=== PATIENT | female | born 1980 | race Caucasian/White ===

== ENCOUNTER 2020-08-25 13:12 | Outpatient (CLI) | payer BC, SELFPAY ==
[2020-08-25 13:54] LABS: Anion Gap 8 mmol/L (8-16); Blood Urea Nitrogen 15 mg/dL (7-17); Carbon Dioxide 30 mmol/L (22-30); Chloride 102 mmol/L (98-107); Cholesterol 324 mg/dL (0-200); Estimated Glomerular Filt Rate > 60; Glucose 109 mg/dL (65-105); HDL Direct 62 mg/dL; Potassium 3.3 mmol/L (3.4-5.0); Sodium 140 mmol/L (137-145); Triglycerides 311 mg/dL (<150)
[2020-08-25 14:05] LABS: LDL Cholesterol Direct 172 mg/dL
== END 2020-08-25 13:13 | disposition home or self-care (01) ==
PROVIDERS: PCP Family Medicine; Visit Provider Nurse Practitioner Family
DX: Z13.29 Encounter for screening for other suspected endocrine disorder (principal); Z13.220 Encounter for screening for lipoid disorders; Z13.1 Encounter for screening for diabetes mellitus
CPT/HCPCS: 36415; 80048; 80061; 84443

== ENCOUNTER 2021-02-13 10:13 | Outpatient (CLI) | payer BC, SELFPAY ==
--- NOTE | ~2021-02-13 | MM_ITS ---
EXAMINATION: MM screening catia BI w jade HISTORY: Screening mammogram TECHNIQUE: Craniocaudal and mediolateral oblique 3-D tomosynthesis images were obtained and synthetic 2-D images were generated. CAD analysis was submitted and interpreted. COMPARISON: 11/14/2017 BREAST PARENCHYMAL COMPOSITION: There are scattered areas of fibroglandular density. FINDINGS: There is no evidence of suspicious mass, calcification, or architectural distortion to sugg est malignancy in either breast. There has been no suspicious interval change. IMPRESSION: 1. No mammographic evidence of malignancy. 2. Recommend routine screening mammography in one year. BI-RADS Category 1: Negative Reviewed, dictated and finalized at location A. NICAL APPLICATIONS SCIENTIST
== END 2021-02-13 10:14 | disposition home or self-care (01) ==
PROVIDERS: PCP Family Medicine; Visit Provider Nurse Practitioner
DX: Z12.31 Encounter for screening mammogram for malignant neoplasm of breast (principal)
CPT/HCPCS: 77063; 77067

== ENCOUNTER 2021-06-20 09:50 | Outpatient (CLI) | payer BC, SELFPAY ==
[2021-06-20 10:23] LABS: Hematocrit 43.1 % (37.0-47.0); Hemoglobin 13.5 g/dL (12.0-15.0); Mean Corpuscular HGB Conc 31.3 g/dl (32-36); Mean Corpuscular Hemoglobin 30.4 pg (26-34); Mean Corpuscular Volume 97.1 fl (80-100); Mean Platelet Volume 10.9 fl (7.4-10.4); Platelet Count Result 204 k/mm3 (150-375); Red Blood Count 4.44 M/mm3 (4.2-5.4); Red Cell Distribution Width 14.6 % (11.5-14.5); White Blood Count 5.3 K/mm3 (4.5-10.0)
[2021-06-20 10:35] LABS: Cholesterol 255 mg/dL (0-200); Glucose 106 mg/dL (65-110); HDL Direct 70 mg/dL; Potassium 4.1 mmol/L (3.4-5.0); Triglycerides 134 mg/dL (<150)
[2021-06-20 10:47] LABS: LDL Cholesterol Direct 162 mg/dL
[2021-06-20 10:57] LABS: Free T4 Free Thyroxine 0.89 ng/mL (0.78-2.19)
== END 2021-06-20 09:51 | disposition home or self-care (01) ==
PROVIDERS: PCP Family Medicine; Referring Provider Obstetrics & Gynecology Gynecology; Visit Provider Nurse Practitioner Family
DX: E78.5 Hyperlipidemia, unspecified (principal); E87.6 Hypokalemia; R73.09 Other abnormal glucose; N93.8 Other specified abnormal uterine and vaginal bleeding
CPT/HCPCS: 36415; 80061; 82947; 84132; 84439; 84443; 85027

== ENCOUNTER 2022-01-10 09:14 | Outpatient (CLI) | payer BC, SELFPAY ==
[2022-01-10 09:48] LABS: Basophils Percent Auto 0.7 % (0.2-1.2); Eosinophils Absolute Auto 0.1 K/mm3 (0-0.3); Eosinophils Percent Auto 1.1 % (0-4.4); Hematocrit 43.3 % (37.0-47.0); Hemoglobin 13.8 g/dL (12.0-15.0); Immature Granulocyte Absolute 0.02 K/mm3 (0.00-0.031); Immature Granulocyte Percent A 0.4 % (0-0.5); Lymphocytes Absolute Auto 1.23 K/mm3 (0.9-3.2); Mean Corpuscular HGB Conc 31.9 g/dl (32-36); Mean Corpuscular Hemoglobin 30.4 pg (26-34); Mean Corpuscular Volume 95.4 fl (80-100); Monocytes Absolute Auto 0.5 K/mm3 (0.1-0.6); Monocytes Percent Auto 9.4 % (2.6-8.5); Neutrophils Absolute Auto 3.5 K/mm3 (1.3-6.7); Neutrophils Percent Auto 65.4 % (45.5-73.1); Platelet Count Result 211 k/mm3 (150-375); Red Blood Count 4.54 M/mm3 (4.2-5.4); Red Cell Distribution Width 14.4 % (11.5-14.5); White Blood Count 5.3 K/mm3 (4.5-10.0)
== END 2022-01-10 09:15 | disposition home or self-care (01) ==
PROVIDERS: PCP Family Medicine; Visit Provider Obstetrics & Gynecology Gynecology
DX: N92.1 Excessive and frequent menstruation with irregular cycle (principal)
CPT/HCPCS: 36415; 85025

== ENCOUNTER → 2022-02-25 10:25 | Outpatient (CLI) | payer BC, SELFPAY ==
--- NOTE | ~2022-02-25 | US_ITS ---
EXAMINATION: US transvaginal DATE: 02/25/2022 11:14 INDICATION: Menorrhagia. Heavy menstruation. Comparison:No prior studies for comparison. TECHNIQUE: Multiple transabdominal and endovaginal sonographic images of the pelvis performed. FINDINGS: The uterus measures 8.8 x 6.5 x 6.8 cm. The endometrial complex measures 6 mm. There are hy poechoic masses of the uterus measuring 1.4 cm on the right and 2.9 cm posteriorly. The right ovary measures 3.4 x 2.5 x 2.1 cm and the left ovary measures 2.8 x 2.9 x 2.3 cm. There ar e small follicles in each ovary. Normal doppler signal in both ovaries. There is no free fluid in the pelvis. There are no abnormal masses seen on either side. IMPRESSION: 1. Uterine fibroids, largest located posteriorly measuring 2.9 x 2.1 x 2 cm. Reviewed, dictated and finalized at location A. BOOM OPERATOR
== END ==
PROVIDERS: PCP Family Medicine; Visit Provider Nurse Practitioner
DX: N92.1 Excessive and frequent menstruation with irregular cycle (principal); D25.9 Leiomyoma of uterus, unspecified
CPT/HCPCS: 76830

== ENCOUNTER 2022-04-22 00:26 | Day surgery (SDC) | payer BC, SELFPAY ==
[2022-04-15 18:06] VITALS: BMI 28.2
--- NOTE | 2022-04-15 18:28 | PC.NURSE ---
Report to the Outpatient Waiting Room, entrance under the green pavilion located off [facility], at 1015 on 04/22/22. Planned Procedure Time: 1215. Time changes happen often and if your time is changed the preop area will call you the afternoon before. - You and your visitor will be asked to self-screen and do not enter if you have any COVID symptoms. - Only one visitor is requested with a max of two and NO children visitors are allowed at this time. - The patient visitor may be requested to leave or wait in car when not with patient due to distancing restrictions. - A mask is optional within the hospital. Patients may have clear liquids (water, carbonated beverages, clear teas, apple juice) until 3 hours prior to surgery with a maximum of 20 ounces. 0915 - No food from midnight until time of surgery - Infants may have breast milk until 4 hours before surgery, infant formula 6 hours prior to surgery. - Children will be allowed to drink immediately following surgery. If applicable, please bring a bottle or sippy cup to assist with drinking. Juice, water, soda, and popsicles are readily available. For infants on formula, please bring formula the day of surgery. Pacifiers are allowed. Take the following medications with a SIP of water the morning of surgery: None Medications to discontinue per physician: N/A Please no make-up, nail syriac, hairspray, perfume, deodorant, or body powder the day of surgery. No jewelry (including any body piercings) or valuables the day of surgery, leave them at home. Please take a shower or bath the night before, or the morning of, surgery with an antibacterial soap. Wear comfortable, loose fitting clothing. Children are encouraged to wear pajamas. - Jewelry must be removed prior to entering the operating room. Rings and piercings that are not removed may be cut off. - The hospital will not accept responsibility for valuables. - Please leave all valuables, including medications, at home the day of surgery. If you are going home after surgery, a licensed armored car driver must drive you home. - NO public transportation without another adult if you receive anesthesia. - We recommend that an adult stay with you for 24 hours following discharge. - We also recommend that you do not drive, make important decision, drink alcoholic beverages, or take any drugs that were not prescribed by your health care provider for at least 24 hours after your discharge time. For Pediatric surgeries, we recommend two adults accompany the child home. Follow any additional instructions given to you from your surgeon. If you or anyone in your household have experienced Covid symptoms in the past week, please notify your surgeon or the nurse liaison at the phone number below for possible testing. Telephone instructions given to and asked if any additional questions and then verbalized understanding. Patient advised to call surgeon office or pre surgery nurse liaison [phone] if any additional questions.
--- NOTE | 2022-04-22 09:08 | P.PNAN_ITS ---
Anes - Initial Pre Proc Eval Procedure: Operation Date: 04/22/22 12:15 Proposed Procedures p Hysteroscopy Dilation and Curettage, Possible Myomectomy - Shannon Hatch MD Date/Time: 04/22/22 09:08 Surgeon: Shannon Hatch MD Pre Op Diagnosis: menorrhagia, fibroids Patient Data Age: 41 Gender: F Height: 1.68 m Weight: 79.38 kg Allergies Allergy/AdvReac Type Severity Reaction Status Date / Time No Known Allergies Allergy Verified 04/22/22 10:46 Home Medications Medication Instructions Recorded Confirmed Type No Home Medications 04/15/22 04/22/22 History Patient hx anesthesia problems: none Family hx anesthesia problems: none Results Review: All pre-operative results and documents have been reviewed as part of the pre- operative evaluation. 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 Hx of colonic polyps Hyperlipidemia (normal spontaneous vaginal delivery) x1 Surgical History Surgical History (Updated 04/22/22 @ 09:30 by Shannon Hatch MD) History of x3 History of wisdom tooth extraction 1999 Family History Family History Mother Family history of thyroid disease Family history of cardiovascular disease Family history of malignant neoplasm of brain Father Family history of heart disease in male family member before age 55, Onset Age: 39 Diabetes mellitus Family history of mental disorder Social History Social History Years smoked: 15 Smoking status: Former smoker Tobacco type: cigarettes Second hand tobacco smoke exposure: No Smoking end date: 03/31/14 Alcohol intake: current Drinks per week: 5 Substance use: never Substance use type: does not use Living arrangements: with family Spiritual care concerns: No Anes - Eval Final PreProcedure Day of Procedure 04/22/22 09:08 Patient weight: overweight Heart: regular rate and rhythm Lungs: clear to auscultation and normal air movement Airway: Mallampati scale class II Neurological: alert and oriented Last oral intake: >/= 8 hours ASA classification: II Emergent: no Anesthetic plan: proceed Anesthesia type and monitoring: general GIVS and LMA Results Review: All pre-operative results and documents have been reviewed as part of the pre- operative evaluation. Informed Consent: The patient's anesthetic plan and its attendant risks and benefits were discussed with the patient/family/POA. Questions were solicited and answers provided to the satisfaction of the patient/family/POA.
--- NOTE | 2022-04-22 09:26 | WPDHPUPDATE1 ---
History and Physical Update Update Date/Time: 04/22/22 09:26 History and Physical has been reviewed, including an updated exam of the patient. There are NO changes in the patient's condition. Risks, benefits, and alternatives have been discussed and questions answered. Patient agrees to proceed with procedure.
--- NOTE | 2022-04-22 09:26 | PM.HPGS ---
History of Present Illness History of Present Illness Consent: Risks, benefits, and alternatives have been discussed and questions answered. Patient agrees to proceed with procedure. Chief complaint: menorrhagia, fibroids Narrative: Natalie Cohn is a 41 year old female with heavy cycles and prolonged spotting lasting guarding then 10 days. Patient underwent pelvic ultrasound which did reveal several fibroids that appeared to be serosal and intramural. It was recommended to proceed with D&C hysteroscopy for further evaluation. The risks of infection, bleeding, perforation, and possible pathology were reviewed. Patient voices understanding and agrees to proceed. 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 Hx of colonic polyps Hyperlipidemia (normal spontaneous vaginal delivery) x1 Surgical History Surgical History (Updated 04/22/22 @ 09:30 by Shannon Hatch MD) History of x3 History of wisdom tooth extraction 1999 Family History Family History Mother Family history of thyroid disease Family history of cardiovascular disease Family history of malignant neoplasm of brain Father Family history of heart disease in male family member before age 55, Onset Age: 39 Diabetes mellitus Family history of mental disorder Social History Social History Years smoked: 15 Smoking status: Former smoker Tobacco type: cigarettes Second hand tobacco smoke exposure: No Smoking end date: 03/31/14 Alcohol intake: current Drinks per week: 5 Substance use: never Substance use type: does not use Living arrangements: with family Spiritual care concerns: No Meds Home Medications and Allergies Home Medications Medication Instructions Recorded Confirmed Type No Home Medications 04/15/22 04/22/22 History Allergies Allergy/AdvReac Type Severity Reaction Status Date / Time No Known Allergies Allergy Verified 04/22/22 10:46 Exam Const: General: healthy appearing and alert Orientation/consciousness: patient oriented x3 Resp: Effort & Inspection: normal respiratory effort Auscultation: clear to auscultation bilaterally Cardio: Rate: regular rate Rhythm: regular rhythm GI: GI Palp: Yes Soft to palpation, No Tenderness to palpation present (GI) and No Palpable mass present : External Female Exam: normal external appearance and other ( approximately 2cm sebaceous cyst of the left buttock) Speculum Exam - Vagina: normal appearance of the vagina and normal vaginal discharge Speculum Exam - Cervix: normal appearance of the cervix Bimanual exam- vagina & uterus: uterine size normal and consistency normal Bimanual Exam- Adnexa, other: normal adnexae and No adnexal tenderness Neuro: General: patient oriented x3 Assessment and Plan Assessment and plan (1) Menorrhagia: Code(s): N92.0 - Excessive and frequent menstruation with regular cycle Status: Acute Assessment and Plan: plan to proceed with D&C hysteroscopy (2) Sebaceous cyst: Code(s): L72.3 - Sebaceous cyst Status: Acute Assessment and Plan: plan to incise, drain, and excise the cyst wall
[2022-04-22] MEDS: ACETAMINOPHEN 500 MG TABLET 1000 MG PO (10:47)
[2022-04-22 10:54] VITALS: BP 122/88; PULSE 75; RESP 20; TEMP 36.9; O2SAT 100
[2022-04-22] MEDS: LACTATED RINGERS 1,000 ML 30 ML IV CONT (11:00)
[2022-04-22] MEDS: LIDOCAINE HCL 1% PF 30 ML VIAL 10 ML INFILTRATE (12:09)
[2022-04-22] MEDS: BUPIVACAINE/EPINEPHRINE 0.5% 30 ML VIAL 10 ML INFILTRATE (12:09)
[2022-04-22 12:16] VITALS: BP 125/86; PULSE 77; RESP 16; O2SAT 100
--- NOTE | 2022-04-22 12:19 | P.OP_ITS ---
Procedure Note - Detailed Date of Procedure 04/22/22 Pre-op Diagnosis menorrhagia, fibroids, Left buttock sebaceous cyst Post-op Diagnosis Same Procedure Performed D&C hysteroscopy incision and drainage sebaceous cyst Surgeon Shannon Hatch MD Anesthesia MAC and Local Findings the uterus sounds to 11cm and appears grossly; 2cm sebaceous cyst on the left buttock Description of Procedure The patient is taken to the operating room and placed under anesthesia in the dorsal lithotomy position. She was prepped and draped in the usual sterile fashion. [place] speculum was placed in the vagina and the cervix grasped on the anterior lip tenaculum. The cervix is injected in each quadrant with 1% lidocaine. The uterus is sounded to 11cm. The cervix is serially dilated to an 8 Hegar. The diagnostic hysteroscope was placed with no abnormalities noted it is removed. The medium sharp curette is used to curette the endometrium until a good uterine cry was noted in all areas. Vaginal instruments are removed and attention was turned to the sebaceous cyst. The superficial layers of the sister injected with 0.5% Marcaine with epinephrine [id number]. The cyst is incised with a 15 blade scalpel and the contents removed in an intact ball of tissue and discarded. The base of the cyst is grasped with a pickup and excised and discarded. The incision was closed using 3-0 Vicryl on an SH in a horizontal mattress fashion. The patient is awakened from anesthesia and taken to recovery in stable condition. Sponge, needle, and instrument counts are correct per the OR staff. Estimated Blood Loss 5 Drains No Packing No Pathology Yes ( Endometrial curettings) Complications No immediate complications Condition Stable Disposition PACU
[2022-04-22 12:45] VITALS: BP 150/98; PULSE 69; RESP 16; O2SAT 100
[2022-04-22] MEDS: oxyCODONE HCL (*CRX) 5 MG TAB IR PO (12:51)
== END 2022-04-22 13:26 | disposition home or self-care (01) ==
PROVIDERS: PCP Family Medicine; Visit Provider Obstetrics & Gynecology Gynecology
PROC: 0U5B8ZZ Destruction of Endometrium, Via Natural or Artificial Opening Endoscopic (ICD-10-PCS; CPT 58563; principal; 2022-04-22 12:15)
DX: N92.0 Excessive and frequent menstruation with regular cycle (principal); N84.0 Polyp of corpus uteri; L72.3 Sebaceous cyst; Z87.891 Personal history of nicotine dependence
CPT/HCPCS: 58558; 11402; 88305; A9270; J2250; J2704; J3010; J7030; J7120

== ENCOUNTER → 2022-05-16 10:41 | Outpatient (CLI) | payer BC, SELFPAY ==
--- NOTE | ~2022-05-16 | MM_ITS ---
EXAMINATION: MM screening catia BI w jade HISTORY: Screening mammogram TECHNIQUE: Craniocaudal and mediolateral oblique 3-D tomosynthesis images were obtained and synthetic 2-D images were generated. CAD analysis was submitted and interpreted. COMPARISON: 02/13/2021 bilateral screening mammogram 11/14/2017 diagnostic bilateral mammogram BREAST PARENCHYMAL COMPOSITION: There are scattered areas of fibroglandular density. FINDINGS: There is no evidence of suspicious mass, calcification, or architectural distortion to sugg est malignancy in either breast. There has been no suspicious interval change. IMPRESSION: 1. No mammographic evidence of malignancy. 2. Recommend routine screening mammography in one year. BI-RADS Category 1: Negative Reviewed, dictated and finalized at location A. ERY MACHINE SETTER/SET UP OPERATOR
== END ==
PROVIDERS: PCP Family Medicine; Visit Provider Nurse Practitioner
DX: Z12.31 Encounter for screening mammogram for malignant neoplasm of breast (principal)
CPT/HCPCS: 77063; 77067

== ENCOUNTER → 2022-11-04 08:13 | Outpatient (CLI) | payer BC, SELFPAY ==
--- NOTE | ~2022-11-04 | XR_ITS ---
EXAMINATION: XR abdomen/kub 1V DATE: 11/04/2022 09:22 INDICATION: Microscopic hematuria TECHNIQUE: A supine view of the abdomen on 2 radiographs was obtained. COMPARISON: CT dated 09/02/2022 FINDINGS: The largest 2 mm stone previously seen at the mid to lower right kidney appears to be subtly visible at the same location on the prior radiographs. No other evident nephrolithiasis. Multiple phleboliths in the pelvis. Normal bowel gas pattern. IMPRESSION: 1. 2 mm stone at the mid to lower right kidney Reviewed, dictated and finalized at location B.
--- NOTE | ~2022-11-04 | CT_ITS ---
EXAMINATION: CT abdomen pelvis wo/w con DATE: 11/04/2022 09:22 INDICATION: Microscopic hematuria. TECHNIQUE: Computed tomography (CT) of the abdomen and pelvis was performed without and with intraven ous contrast using a total of 130 mL Omnipaque-350 intravenous contrast with a double-bolus technique for simultaneous opacification of the renal parenchyma and renal collecting system. Automated exposu re control and iterative reconstruction technique were employed. The dose-length product was 1626.55 mGy-cm. COMPARISON: CT abdomen and pelvis 09/02/2022 FINDINGS: The visualized portions of the lung bases demonstrate minimal atelectasis. No pleural effusion. The h eart size is normal. There are coronary artery calcifications. No pericardial effusion. The liver, ga llbladder, spleen, pancreas, and adrenal glands are normal. There are cysts in right kidney measuring up to 15 mm. There is a 2 mm stone in right kidney. Left kidney is normal. The right ureter is not w ell opacified in its middle and distal thirds, but is normal. Left ureter is not well opacified in it s middle third, but is normal. There are no dilated loops of bowel. The appendix is normal. There are no dilated loops of bowel. There are no pathologically enlarged lymph nodes. There is no free intrap eritoneal fluid. There is mild thoracic spondylosis. IMPRESSION: 1. 2 mm nonobstructing right kidney stone. Reviewed, dictated and finalized at location A.
[2022-11-04 08:58] LABS: Estimated Glomerular Filt Rate > 60
== END ==
PROVIDERS: PCP Nurse Practitioner Family; Visit Provider Urology
DX: R31.29 Other microscopic hematuria (principal); R10.9 Unspecified abdominal pain; N20.0 Calculus of kidney
CPT/HCPCS: 74018; 74178; Q9967

== ENCOUNTER 2022-11-14 09:21 | Outpatient (CLI) | payer BC, SELFPAY | END 2022-11-14 09:22 | disposition home or self-care (01) | LOC: ANHLAB 09:22 | PROVIDERS: PCP Nurse Practitioner Family; Visit Provider Surgery | DX: Z01.818 Encounter for other preprocedural examination (principal); K43.9 Ventral hernia without obstruction or gangrene | CPT/HCPCS: 36415; 86850; 86900; 86901 ==

== ENCOUNTER 2022-11-19 02:49 | Day surgery (SDC) | payer BC, SELFPAY ==
[2022-11-13 09:44] VITALS: BMI 28.3
--- NOTE | 2022-11-13 09:48 | SUR.PREOP ---
Report to the Outpatient Waiting Room, entrance under the green pavilion located off [facility], at time _1000 on date _11/19/22 . Planned Procedure Time: _1200 . Time changes happen often and if your time is changed the preop area will call you the afternoon before. - You and your visitor will be asked to self-screen and do not enter if you have any COVID symptoms. - A mask is optional within the hospital at this time. Patients may have clear liquids (water, carbonated beverages, clear teas, apple juice) until 3 hours prior to surgery with a maximum of 20 ounces. - No food from midnight until time of surgery - Infants may have breast milk until 4 hours before surgery, infant formula 6 hours prior to surgery. - Children will be allowed to drink immediately following surgery. If applicable, please bring a bottle or sippy cup to assist with drinking. Juice, water, soda, and popsicles are readily available. For infants on formula, please bring formula the day of surgery. Pacifiers are allowed. Take the following medications with a SIP of water the morning of surgery: __n/a DO NOT STOP ANY OF YOUR OTHER PRESCRIPTION MEDICATIONS PRIOR TO SURGERY ?EXCEPT THE FOLLOWING Medications to discontinue per physician __n/a Date to take last dose_n/a Please no make-up, nail korean, hairspray, perfume, deodorant, or body powder the day of surgery. No jewelry (including any body piercings) or valuables the day of surgery, leave them at home. Please take a shower or bath the night before, or the morning of, surgery with an antibacterial soap. Wear comfortable, loose fitting clothing. Children are encouraged to wear pajamas. - Jewelry must be removed prior to entering the operating room. Rings and piercings that are not removed may be cut off. - The hospital will not accept responsibility for valuables. - Please leave all valuables, including medications, at home the day of surgery. HIBICLEROSIO SHOWER AM OF SURGERY If you are going home after surgery, a licensed auto driver must drive you home. - NO public transportation without another adult if you receive anesthesia. - We recommend that an adult stay with you for 24 hours following discharge. - We also recommend that you do not drive, make important decision, drink alcoholic beverages, or take any drugs that were not prescribed by your health care provider for at least 24 hours after your discharge time. For Pediatric surgeries, we recommend two adults accompany the child home. Follow any additional instructions given to you from your surgeon. If you or anyone in your household have experienced Covid symptoms in the past week, please notify your surgeon or the nurse liaison at the phone number below for possible testing. Telephone instructions given to _avmshi chong and asked if any additional questions and then verbalized understanding. Patient advised to call surgeon office or pre surgery nurse liaison [phone] if any additional questions.
[2022-11-19] VITALS (11 sets, daily range): BP systolic 115–150; BP diastolic 63–108; PULSE 54–90; RESP 14–20; TEMP 36.5–36.7; O2SAT 96–100
[2022-11-19] MEDS: KETOROLAC 15 MG/ML VIAL (*BKC) IV PUSH (10:47)
[2022-11-19] MEDS: ACETAMINOPHEN 500 MG TABLET 1000 MG PO (10:47)
--- NOTE | 2022-11-19 11:51 | WPDANESEPPF ---
Anes - Initial Pre Proc Eval Procedure: Operation Date: 11/19/22 12:00 Proposed Procedures p Robotic Assisted Laparoscopic Ventral Hernia Repair with Mesh, Possible Open - Darek Ortiz MD Date/Time: 11/19/22 11:51 Surgeon: Darek Ortiz MD Pre Op Diagnosis: Reducible ventral hernia Patient Data Age: 41 Gender: F Height: 1.68 m Weight: 78.9 kg Last Vital Signs Temp 36.7 C 11/19/22 10:15 Pulse 75 11/19/22 10:15 Resp 18 11/19/22 10:15 BP 141/100 H 11/19/22 10:45 Pulse Ox 100 11/19/22 10:15 O2 Del Method Room Air 11/19/22 10:15 Allergies Allergy/AdvReac Type Severity Reaction Status Date / Time No Known Allergies Allergy Verified 11/19/22 11:08 Home Medications Medication Instructions Recorded Confirmed Type vibegron 75 mg tablet 75 mg PO DAILY 11/13/22 11/19/22 History Patient hx anesthesia problems: none Family hx anesthesia problems: none Results Review: All pre-operative results and documents have been reviewed as part of the pre-operative evaluation. 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 Hx of colonic polyps Hyperlipidemia (normal spontaneous vaginal delivery) x1 Surgical History Surgical History H/O myomectomy History of x3 History of wisdom tooth extraction 1999 Family History Family History Mother Family history of thyroid disease Family history of cardiovascular disease Family history of malignant neoplasm of brain Father Family history of heart disease in male family member before age 55, Onset Age: 39 Diabetes mellitus Family history of mental disorder Acute myocardial infarction Sibling Congenital heart defect Social History Social History Years smoked: 15 Smoking status: Former smoker Tobacco type: cigarettes Second hand tobacco smoke exposure: No Smoking end date: 03/31/18 Additional smoking assessment comments: 15 years smoking 5 cigarettes a day Alcohol intake: current Drinks per week: 5 Substance use: never Substance use type: does not use Lack of Transportation: No Lack of Food: Never True Current Housing: I Have Housing Concerned About Future Housing: No Difficulty Paying Gas/Electric Bills: No Difficulty Paying for Meds: No Currently Unemployed: No Education: Bachelor's Degree Difficulty w/ Childcare or Family Care: No Living arrangements: with family Occupation/Education: occupation Additional occupation/education comments: Wound care nurse. Gender identity (if verbalized by the patient): Female Spiritual care concerns: No Anes - Eval Final PreProcedure Day of Procedure 11/19/22 11:51 Patient weight: overweight Heart: regular rate and rhythm Lungs: clear to auscultation Airway: Mallampati scale class II Neurological: alert and oriented Last oral intake: >/= 8 hours ASA classification: II Emergent: no Anesthetic plan: proceed Anesthesia type and monitoring: general ETT and standard monitoring Results Review: All pre-operative results and documents have been reviewed as part of the pre-operative evaluation. Informed Consent: The patient's anesthetic plan and its attendant risks and benefits were discussed with the patient/family/POA. Questions were solicited and answers provided to the satisfaction of the patient/family/POA.
--- NOTE | 2022-11-19 12:04 | PM.IMHP ---
H&P: HPI History of Present Illness Date/Time: 11/19/22 12:04 Chief Complaint: Ventral hernia Narrative: Ms. Cohn presents at the request of DAYRON Terrell for evaluation.? She reports a approximately 5-year history of intermittent anna-umbilical discomfort.? Recently she's noticed increase in frequency and severity of pain- worse with lifting and activity, and is able to palpate a periumbilical bulge.? Her PCP has ordered her to have a CT scan but as of today this hasn't been scheduled. Review of Systems Review of Systems: The remainder of the review of systems to include constitutional, HEENT, cardiovascular, respiratory, GI, , integumentary, musculoskeletal, endocrine, immunologic, hematologic, psychiatric, and neurologic are all negative except for which is mentioned above in the HPI. 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 Hx of colonic polyps Hyperlipidemia (normal spontaneous vaginal delivery) x1 Surgical History Surgical History H/O myomectomy History of x3 History of wisdom tooth extraction 1999 Family History Family History Mother Family history of thyroid disease Family history of cardiovascular disease Family history of malignant neoplasm of brain Father Family history of heart disease in male family member before age 55, Onset Age: 39 Diabetes mellitus Family history of mental disorder Acute myocardial infarction Sibling Congenital heart defect Social History Social History Years smoked: 15 Smoking status: Former smoker Tobacco type: cigarettes Second hand tobacco smoke exposure: No Smoking end date: 03/31/18 Additional smoking assessment comments: 15 years smoking 5 cigarettes a day Alcohol intake: current Drinks per week: 5 Substance use: never Substance use type: does not use Lack of Transportation: No Lack of Food: Never True Current Housing: I Have Housing Concerned About Future Housing: No Difficulty Paying Gas/Electric Bills: No Difficulty Paying for Meds: No Currently Unemployed: No Education: Bachelor's Degree Difficulty w/ Childcare or Family Care: No Living arrangements: with family Occupation/Education: occupation Additional occupation/education comments: Wound care nurse. Gender identity (if verbalized by the patient): Female Spiritual care concerns: No Meds Home Medications and Allergies Home Medications Medication Instructions Recorded Confirmed Type vibegron 75 mg tablet 75 mg PO DAILY 11/13/22 11/19/22 History Allergies Allergy/AdvReac Type Severity Reaction Status Date / Time No Known Allergies Allergy Verified 11/19/22 11:08 Vital Signs Vital Signs - 24 hr 11/19/22 10:15 11/19/22 10:45 Temperature 36.7 C Pulse Rate 75 Respiratory Rate 18 Blood Pressure 141/108 H 141/100 H Pulse Oximetry 100 Oxygen Delivery Room Air Exam Const: General: comfortable and no acute distress HENMT: Ears: TM's normal bilaterally Face/Nose/Sinus: Normal nares present Mouth: Yes moist mucous membranes Eyes: General: appearance normal, both eyes and all related structures Sclera: sclerae normal Pupils: Equal, round and reactive pupils present EOM: EOMs intact bilaterally Neck: Neck: supple and no JVD Resp: Effort & Inspection: normal respiratory effort Auscultation: clear to auscultation bilaterally Cardio: Rate: regular rate Rhythm: regular rhythm GI: Other: Soft, nondistended, small 1.5 cm periumblical ventral hernia in larger area of epigastric diastasis. Skin: General skin exam: normal color and no rashes or lesions noted Neuro: General: gait normal
--- NOTE | 2022-11-19 12:09 | WPDHPUPDATE1 ---
History and Physical Update Update Date/Time: 11/19/22 12:09 History and Physical has been reviewed, including an updated exam of the patient. There are NO changes in the patient's condition. Risks, benefits, and alternatives have been discussed and questions answered. Patient agrees to proceed with procedure.
[2022-11-19] MEDS: ceFAZolin 2 GM/D5W 50 ML 2 GM/50 ML BAG IVPB (12:56)
[2022-11-19] MEDS: BUPIVACAINE/EPINEPHRINE 0.5% 50 ML VIAL 20 ML INFILTRATE (15:36)
[2022-11-19] MEDS: LACTATED RINGERS 1,000 ML 30 ML IV CONT ×2 (15:59)
[2022-11-19] MEDS: fentaNYL CITRATE INJ (*CRX) 100 MCG/2 ML VIAL 25 MCG IV PUSH ×5 (16:06→16:43)
[2022-11-19] MEDS: ONDANSETRON INJ 4 MG/2 ML VIAL IV PUSH (16:17)
[2022-11-19] MEDS: SCOPOLAMINE 1.5 MG PATCH TRANSDERM (16:33)
[2022-11-19] MEDS: diphenhydrAMINE HCl INJ 50 MG/ML VIAL 25 MG IV PUSH (16:36)
--- NOTE | 2022-11-19 17:13 | W.PM.PROC2 ---
Procedure Note - Detailed Date of Procedure 11/19/22 Pre-op Diagnosis Reducible ventral hernia Post-op Diagnosis Same Procedure Performed Trans abdominal preperitoneal robotic assisted laparoscopic periumbilical reducible ventral hernia repair with Ventralight ST mesh. Surgeon Darek Ortiz MD Telephone Diaphragm Assembler Castro Barrios [employer] MANAGER Anesthesia General Indications Patient is a 41-year-old female who presented with bulging in the periumbilical region. On examination she has a small umbilical hernia with a large area of periumbilical and lower epigastric abdominal diastasis. It is causing her to have symptoms of soreness and so she presents now for elective repair with the robotic assisted laparoscopic approach. Findings The fascial defect itself measured about 1cm in diameter. It was in a larger area of periumbilical diastasis measuring approximately 8cm in length by 4cm in width. There were no abdominal adhesions in the area. Preperitoneal fat was noted within the small fascial defect. Description of Procedure After informed consent was obtained the patient was brought to the operating room where she was placed supine position and then general endotracheal anesthesia was administered. A Arroyo catheter was placed to decompress the bladder. The abdomen was then prepped and draped in usual sterile fashion. A time-out was then performed correctly identifying the patient as well as the procedure to be performed. She was given perioperative IV antibiotics. I then started by gaining access into the abdomen placing a 10mm left upper quadrant compounding assistant trocar port under direct visualization with an Optiview port. Once inside the abdomen insufflated to adequate pneumoperitoneum of 15mmHg of CO2. There were no adhesions to obscure the view of the central portion of the abdomen. I then placed additional robotic trocar ports along the left lateral abdominal wall under direct visualization. Baloonr Nick robot was then brought to the patient's bedside and docked to the patient's right side. The robotic arms were then docked to the robotic ports. Robotic instruments were then advanced into the abdomen under direct visualization. I then scrubbed out the procedure and sat down the robotic console to perform the dissection robotically. I then proceeded to incise the peritoneum on the left side of the patient's abdominal wall. I entered the preperitoneal space very easily and found a good dissection plane where the preperitoneal fat and peritoneum easily came down off of the posterior rectus fascia with a combination of electrocautery hook dissection and blunt dissection. Once I reached the small hernia defect the preperitoneal fat this defect was reduced. I measured the defect was approximately 1cm in diameter. This is in a larger area of abdominal wall diastasis measuring approximately 8cm in length by 4cm in width. Once I felt I had dissected the left at the preperitoneal fat and peritoneum off of the posterior rectus fascia I then proceeded to measure the area of dissection. It seem like a piece of Ventralight mesh measuring 15cm in length by 10cm width with fit in the space very nicely. I then proceeded to do close the small defect and reapproximate the thicker edges of the muscle to plicate the diastasis. This was done with a a running 0 barbed Stratafix suture. This closed defect and close the diastasis easily without any tension. I then proceeded to place the [id number] Ventralight mesh into the abdomen through the compounding assistant port site. A grainy needle was then placed through the abdominal wall and the mesh was pulled up to the undersurface of the abdominal wall utilizing the trans fascial suture in the central portion of the mesh. The mesh was oriented such the long axis of the mesh was parallel to the long axis of the abdomen. This cover the area of hernia defect closure and the bigger area of diastasis very nicely with at least 4 to 5 cm overlap circumferentiall
== END 2022-11-19 18:40 | disposition home or self-care (01) ==
PROVIDERS: PCP Nurse Practitioner Family; Visit Provider Surgery
PROC: (CPT 49591; principal; 2022-11-19 12:00)
DX: K43.9 Ventral hernia without obstruction or gangrene (principal); M62.08 Separation of muscle (nontraumatic), other site; E78.5 Hyperlipidemia, unspecified; Z87.891 Personal history of nicotine dependence
CPT/HCPCS: 49591; S2900; A9270; C1781; C9290; J0690; J1100; J1170; J1200; J1885; J2250; J2405; J2704; J3010; J7120

== ENCOUNTER 2023-03-03 01:09 | Day surgery (SDC) | payer BC, SELFPAY ==
[2023-02-25 08:35] VITALS: BMI 28.2
--- NOTE | 2023-02-25 08:41 | PC.NURSE ---
Report to the Outpatient Waiting Room, entrance under the green pavilion located off [facility], at time 0915 on date 03/03/23. Planned Procedure Time: 1115. Time changes happen often and if your time is changed the preop area will call you the afternoon before. - You and your visitor will be asked to self-screen and do not enter if you have any COVID symptoms. - A mask is optional within the hospital at this time. Patients may have clear liquids (water, carbonated beverages, clear teas, apple juice) until 3 hours prior to surgery with a maximum of 20 ounces. - No food from midnight until time of surgery Take the following medications with a SIP of water the morning of surgery: N/A DO NOT STOP ANY OF YOUR OTHER PRESCRIPTION MEDICATIONS PRIOR TO SURGERY ?EXCEPT THE FOLLOWING Medications to discontinue per physician: N/A Date to take last dose: N/A Please no make-up, nail sinhala, hairspray, perfume, deodorant, or body powder the day of surgery. No jewelry (including any body piercings) or valuables the day of surgery, leave them at home. Please take a shower or bath the night before, or the morning of, surgery with an antibacterial soap. Wear comfortable, loose fitting clothing. - Jewelry must be removed prior to entering the operating room. Rings and piercings that are not removed may be cut off. - The hospital will not accept responsibility for valuables. - Please leave all valuables, including medications, at home the day of surgery. If you are going home after surgery, a licensed pick up driver must drive you home. - NO public transportation without another adult if you receive anesthesia. - We recommend that an adult stay with you for 24 hours following discharge. - We also recommend that you do not drive, make important decision, drink alcoholic beverages, or take any drugs that were not prescribed by your health care provider for at least 24 hours after your discharge time. Follow any additional instructions given to you from your surgeon. If you or anyone in your household have experienced Covid symptoms in the past week, please notify your surgeon or the nurse liaison at the phone number below for possible testing. Telephone instructions given to PT - BRAD BLOCK and asked if any additional questions and then verbalized understanding. Patient advised to call surgeon office or pre surgery nurse liaison [phone] if any additional questions.
--- NOTE | 2023-03-03 07:55 | WPDHPUPDATE1 ---
History and Physical Update Update Date/Time: 03/03/23 07:55 History and Physical has been reviewed, including an updated exam of the patient. There are NO changes in the patient's condition. Risks, benefits, and alternatives have been discussed and questions answered. Patient agrees to proceed with procedure.
--- NOTE | 2023-03-03 07:55 | PM.HPGS ---
History of Present Illness History of Present Illness Consent: Risks, benefits, and alternatives have been discussed and questions answered. Patient agrees to proceed with procedure. Chief complaint: menorrhagia Narrative: Natalie Cohn is a 42 year old female sent with heavy irregular cycles. Patient underwent D&C hysteroscopy in March of 2022 with benign findings and a polyp. Patient was given multiple options at that time and wished to observe. She returned for her annual exam in December and requested to proceed with endometrial ablation. Risks of infection, bleeding,perforation, failure, and success were reviewed. patient voices understanding and agreed to proceed. 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 on 11/19/22 SAW History of hysteroscopy excision of polyp April 22 History of wisdom tooth extraction 1999 Family History Family History Mother Family history of thyroid disease Family history of cardiovascular disease Family history of malignant neoplasm of brain Father Family history of heart disease in male family member before age 55, Onset Age: 39 Diabetes mellitus Family history of mental disorder Acute myocardial infarction Sibling Congenital heart defect Social History Social History Years smoked: 15 Smoking status: Former smoker Tobacco type: cigarettes Second hand tobacco smoke exposure: No Smoking end date: 03/31/16 Additional smoking assessment comments: 15 years smoking 5 cigarettes a day Alcohol intake: current Drinks per week: 5 Substance use: never Substance use type: does not use Lack of Transportation: No Lack of Food: Never True Current Housing: I Have Housing Concerned About Future Housing: No Difficulty Paying Gas/Electric Bills: No Difficulty Paying for Meds: No Currently Unemployed: No Education: Bachelor's Degree Difficulty w/ Childcare or Family Care: No Living arrangements: with family Occupation/Education: occupation Additional occupation/education comments: Wound care nurse. Gender identity (if verbalized by the patient): Female Spiritual care concerns: No Meds Home Medications and Allergies Home Medications Medication Instructions Recorded Confirmed Type No Home Medications 01/03/23 02/25/23 History Allergies Allergy/AdvReac Type Severity Reaction Status Date / Time No Known Allergies Allergy Verified 02/25/23 08:35 Exam Const: General: healthy appearing and alert Orientation/consciousness: patient oriented x3 Resp: Effort & Inspection: normal respiratory effort GI: GI Palp: Yes Soft to palpation, No Tenderness to palpation present (GI) and No Palpable mass present : External Female Exam: normal external appearance Speculum Exam - Vagina: normal appearance of the vagina and normal vaginal discharge Speculum Exam - Cervix: normal appearance of the cervix Bimanual exam- vagina & uterus: uterine size normal and consistency normal Bimanual Exam- Adnexa, other: normal adnexae and No adnexal tenderness Neuro: General: patient oriented x3 Assessment and Plan Assessment and plan (1) Menorrhagia: Code(s): N92.0 - Excessive and frequent menstruat
[2023-03-03 08:05] VITALS: BP 134/92; PULSE 71; RESP 18; TEMP 36.2; O2SAT 100
[2023-03-03] MEDS: LACTATED RINGERS 1,000 ML 30 ML IV CONT (08:33)
[2023-03-03] MEDS: ACETAMINOPHEN 500 MG TABLET 1000 MG PO (08:34)
--- NOTE | 2023-03-03 08:40 | WPDANESEPPF ---
Anes - Initial Pre Proc Eval Procedure: Operation Date: 03/03/23 09:45 Proposed Procedures p Hysteroscopy, Melva Endometrial Ablation - Shannon Hatch MD Date/Time: 03/03/23 08:40 Surgeon: Shannon Hatch MD Pre Op Diagnosis: menorrhagia Patient Data Age: 42 Gender: F Height: 1.68 m Weight: 79.4 kg Allergies Allergy/AdvReac Type Severity Reaction Status Date / Time No Known Allergies Allergy Verified 03/03/23 08:39 Home Medications Medication Instructions Recorded Confirmed Type No Home Medications 01/03/23 03/03/23 History Patient hx anesthesia problems: none Family hx anesthesia problems: none Results Review: All pre-operative results and documents have been reviewed as part of the pre-operative evaluation. 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 on 11/19/22 SAW History of hysteroscopy excision of polyp April 22 History of wisdom tooth extraction 1999 Family History Family History Mother Family history of thyroid disease Family history of cardiovascular disease Family history of malignant neoplasm of brain Father Family history of heart disease in male family member before age 55, Onset Age: 39 Diabetes mellitus Family history of mental disorder Acute myocardial infarction Sibling Congenital heart defect Social History Social History Years smoked: 15 Smoking status: Former smoker Tobacco type: cigarettes Second hand tobacco smoke exposure: No Smoking end date: 03/31/16 Additional smoking assessment comments: 15 years smoking 5 cigarettes a day Alcohol intake: current Drinks per week: 5 Substance use: never Substance use type: does not use Lack of Transportation: No Lack of Food: Never True Current Housing: I Have Housing Concerned About Future Housing: No Difficulty Paying Gas/Electric Bills: No Difficulty Paying for Meds: No Currently Unemployed: No Education: Bachelor's Degree Difficulty w/ Childcare or Family Care: No Living arrangements: with family Occupation/Education: occupation Additional occupation/education comments: Wound care nurse. Gender identity (if verbalized by the patient): Female Spiritual care concerns: No Anes - Eval Final PreProcedure Day of Procedure 03/03/23 08:40 Patient weight: overweight Heart: regular rate and rhythm Lungs: clear to auscultation Airway: Mallampati scale class II Neurological: alert and oriented Last oral intake: >/= 8 hours ASA classification: II Emergent: no Anesthetic plan: proceed Anesthesia type and monitoring: general GIVS and standard monitoring Results Review: All pre-operative results and documents have been reviewed as part of the pre-operative evaluation. Informed Consent: The patient's anesthetic plan and its attendant risks and benefits were discussed with the patient/family/POA. Questions were solicited and answers provided to the satisfaction of the patient/family/POA.
[2023-03-03] MEDS: LIDOCAINE HCL 1% LOCAL INJ 20 ML VIAL 10 ML INFILTRATE (09:32)
[2023-03-03 09:47] VITALS: BP 104/66; PULSE 66; RESP 12; O2SAT 99
--- NOTE | 2023-03-03 09:48 | W.PM.PROC2 ---
Procedure Note - Detailed Date of Procedure 03/03/23 Pre-op Diagnosis menorrhagia Post-op Diagnosis Same Procedure Performed hysteroscopy with failed Melva endometrial ablation Surgeon Shannon Hatch MD Anesthesia MAC and Local Findings the uterus sounds to 11cm; the path through the cervix is irregular; the endometrium appears grossly Description of Procedure The patient is taken to the operating room and placed under anesthesia in the dorsal lithotomy position. She was prepped and draped in the usual sterile fashion. [place] speculum was placed in the vagina and the cervix grasped on the anterior lip with a tenaculum. The cervix is serially injected in each quadrant with 1% lidocaine. The uterus is sounded to 11cm. The diagnostic hysteroscope was placed and the path through the cervix is very convoluted with more than 1 sharp angle. The lower uterine segment is narrow. The cervix is serially dilated with Hegar to an 8. The Melva device is opened and placed and with difficulty. The indicator remained in the red on the handpiece. The device is manipulated to the left, right, up, and down and finally was in the lower end of the green on the indicator. The balloon was then inflated with 6cc of air. The cavity assessment failed on the 1st attempt. Due to the convoluted path to the endometrium, the device was removed and the hysteroscope replaced. The hysteroscope revealed as I suspected a perforation in the anterior fundus. The instruments were removed. The sponge, needle, and instrument counts are correct per the OR staff. The patient was awakened from anesthesia and taken to recovery in stable condition. Due to the anatomy, I do not feel a 2nd attempt at an ablation would be successful. Estimated Blood Loss 5 Drains No Packing No Pathology None sent Complications Other complications ( Uterine perforation) Condition Stable Disposition PACU
[2023-03-03 10:15] VITALS: BP 120/80; PULSE 64
[2023-03-03] MEDS: KETOROLAC 30 MG/ML VIAL (*BKC) IV PUSH (10:35)
[2023-03-03 10:45] VITALS: BP 134/85; PULSE 68
== END 2023-03-03 10:57 | disposition home or self-care (01) ==
PROVIDERS: PCP Nurse Practitioner Family; Visit Provider Obstetrics & Gynecology Gynecology
PROC: 0U5B8ZZ Destruction of Endometrium, Via Natural or Artificial Opening Endoscopic (ICD-10-PCS; CPT 58563; principal; 2023-03-03 09:45)
DX: N92.0 Excessive and frequent menstruation with regular cycle (principal); I10 Essential (primary) hypertension; E78.5 Hyperlipidemia, unspecified; Z87.891 Personal history of nicotine dependence; Z86.010 Personal history of colon polyps; Z82.49 Family history of ischemic heart disease and other diseases of the circulatory system; Z80.8 Family history of malignant neoplasm of other organs or systems
CPT/HCPCS: 58563; A9270; J1100; J1885; J2250; J2405; J2704; J3010; J7120

== ENCOUNTER → 2023-05-20 11:29 | Outpatient (CLI) | payer BC, SELFPAY ==
--- NOTE | ~2023-05-20 | MM_ITS ---
EXAMINATION: MM screening [facility] BI w jade HISTORY: Screening TECHNIQUE: Craniocaudal and mediolateral oblique 3-D tomosynthesis images were obtained and synthetic 2-D images were generated. CAD analysis was submitted and interpreted. COMPARISON: Comparison to multiple prior studies sequentially, with oldest reviewed study dated 11/14. BREAST PARENCHYMAL COMPOSITION: Not dense: There are scattered areas of fibroglandular density. FINDINGS: There is no evidence of suspicious mass, calcification, or architectural distortion to sugg est malignancy in either breast. There has been no suspicious interval change. IMPRESSION: 1. No mammographic evidence of malignancy. 2. Recommend routine screening mammography in one year. BI-RADS Category 1: Negative Reviewed, dictated and finalized at location A. TICAL SCIENCE INSTRUCTOR
== END ==
PROVIDERS: PCP Family Medicine; Visit Provider Nurse Practitioner
DX: Z12.31 Encounter for screening mammogram for malignant neoplasm of breast (principal)
CPT/HCPCS: 77063; 77067

== ENCOUNTER 2023-12-15 07:56 | Outpatient (CLI) | payer BC, SELFPAY ==
--- NOTE | ~2023-12-15 | US_ITS ---
EXAMINATION: US soft tissue LE RT DATE: 12/15/2023 08:19 INDICATION: Right lower limb mass, lump and swelling. TECHNIQUE: Multiple grayscale and Doppler ultrasound images of the region of concern at the anterior right thigh were obtained. COMPARISON: None FINDINGS/IMPRESSION: At the region of concern is a 1.2 x 0.7 x 1.3 cm ovoid region of the superficial subcutaneous fat wit h slightly increased echogenicity which could be due to either inflammation or a lipoma. Reviewed, dictated and finalized at location B.
== END 2023-12-15 07:57 | disposition home or self-care (01) ==
LOC: MICIMG 07:57
PROVIDERS: PCP Family Medicine; Visit Provider Nurse Practitioner Adult Health
DX: R22.41 Localized swelling, mass and lump, right lower limb (principal)
CPT/HCPCS: 76882

== ENCOUNTER 2024-06-07 15:08 | Outpatient (CLI) | payer BC, SELFPAY ==
[2024-06-07 15:40] LABS: Hematocrit 37.6 % (37.0-47.0); Hemoglobin 11.2 g/dL (12.0-15.0); Mean Corpuscular HGB Conc 29.8 g/dl (32-36); Mean Corpuscular Hemoglobin 24.1 pg (26-34); Mean Corpuscular Volume 80.9 fl (80-100); Mean Platelet Volume 9.8 fl (7.4-10.4); Platelet Count Result 335 k/mm3 (150-375); Red Blood Count 4.65 M/mm3 (4.2-5.4); Red Cell Distribution Width 17.2 % (11.5-14.5); White Blood Count 6.1 K/mm3 (4.5-10.0)
[2024-06-07 16:23] LABS: Free T4 Free Thyroxine 0.87 ng/dL (0.78-2.19)
--- OUTSIDE RECORDS SUMMARY | 2024-06-07 17:43 | XMS_ITS | Continuity of Care Document ---
Author Organization [facility] Address [address] [place] [address] Phone Care Team Providers [employer] Name Role Phone Nohemi Wayne Unavailable Unavai labpadmaja Medications Medication Instructions Dosage Effective Dates (start - stop) Status Comments CORTISPORIN-TC 3.3-3-12/29 DROP 3 QID - Active Advance Directives Directive Yes / No Effective Date File Name No Information Encounters Encounter Description Practice Location Reason(s) For Visit Diagnoses Date Provider Providers Copied on Encounter [facility], [address], [place], [place], [id number], tel:[phone] [facility] No Information Sep-0 6-201 1 Mirza Song. [address] [facility], [address] [place] [address], [id number] , [place]. tel: [phone] [facility], [address], [place], [place], [id number], tel:[phone] [facility] ACUTE PHARYNGITIS July-0 7-200 9 Mariusz Oswald. [address] , [address], [place], [place], [id number] , [place]. tel: [phone] [facility], [address], [place], [place], [id number], tel:[phone] [facility] ACUTE NASOPHARYNGITIS May-0 7-200 9 Mirza Song. [address] [facility], [address] [facility], [place], [place], [id number] , . tel: [phone] [facility], [address], [place], [place], [id number], [place] tel:[phone] [facility] IMPAIRED FASTING GLUCOSE 8 Mariusz Oswald. [address], [address], [place], [place], [id number] , [place]. tel: [phone] [facility], [address], [place], [place], [id number], tel:[phone] [facility] SCREEN-DEFIC ANEMIA NECROUTINE MEDICAL EXAMSCREEN-DIABE TRISTEN MELLITUSSCREEN-T HYROID DISORDERSCREEN LIPOID DISORDERS 8 Mariusz Oswald. [address], [address], [place], [place], [id number] , [place]. tel: [phone] Family History Family Member Type Diagnosis Age At Onset No Information Payers Payer name Insurance type Covered libertarian ID Authoriza tion(s) No Information Social History Type Description Quantity Date Captured Comments Sex Female Smoking Status No Information Chief Complaint And Reason For Visit No Information Reason For Referral Reason For Referral No Information History Of Present Illness Encounter Date Complaint History Of Prese nt Illness No Information Functional Status Date Functional Assessmen t No Information Instructions Date Instruction Additional Infor mation No Information Assessments Type Assessment Date No Information Patient Care Teams Name Effective Dates (start - stop) Status Members No Information
--- OUTSIDE RECORDS SUMMARY | 2024-06-07 17:44 | XMS_ITS | Continuity of Care Document ---
Author Organization [facility] Address [address] [place] [address] Phone Care Team Providers Care Vacuum Repairer Name Role Phone Unavailable Unavailable Unavailable Advance Directives Directive Yes / No Effective Date File Name No Information Encounters Encounter Description Practice Location Reason(s) For Visit Diagnoses Date Provider Providers Copied on Encounter [facility], [address] [facility], [place], [place], [id number], tel:[phone] [facility] No Information No Information Referring Provider: STARLA ARCEO S, [address] [facility] [id number], [place], [address]. tel:[phone] Family History Family Member Type Diagnosis Age At Onset No Information Payers Payer name Insurance type Covered constitution party ID Authorjon srivastava(s) [facility] PPO [id number] Social History Type Description Quantity Date Captured Comments Sex Female Smoking Status No Information Chief Complaint And Reason For Visit No Information History Of Present Illness Encounter Date Complaint History Of Prese nt Illness No Information Instructions Date Instruction Additional Infor mation No Information Assessments Type Assessment Date No Information
[2024-06-09 02:28] LABS: Prolactin 4.5 ng/mL
== END 2024-06-07 15:09 | disposition home or self-care (01) ==
LOC: ANHLAB 15:09
PROVIDERS: PCP Family Medicine; Visit Provider Nurse Practitioner Family
DX: N92.0 Excessive and frequent menstruation with regular cycle (principal)
CPT/HCPCS: 36415; 84146; 84439; 84443; 85027

== ENCOUNTER 2024-07-13 09:20 | Outpatient (CLI) | payer BC, SELFPAY ==
--- NOTE | ~2024-07-13 | US_ITS ---
Pelvic ultrasound. Clinical History: Menorrhagia Technique: Realtime transabdominal and transvaginal scanning of the pelvis was performed. Color flow Doppler and Doppler spectral analysis were performed. Findings: The uterus is anteverted, and measures 10.7 x 6.7 x 7.5 cm. The endometrial stripe has a t hickness of 13 mm. Intramural, possibly partial submucosal fibroid measures 3.7 x 3.2 x 3.0 cm.. The right ovary measures 1.7 x 2.5 x 1.7 cm. No significant right ovarian or adnexal mass is seen. The left ovary measures 3.0 x 1.5 x 2.3 cm. No significant left ovarian or adnexal mass is seen. There is no evidence of free fluid in the cul de sac. Impression: 3.7 cm uterine fibroid, as detailed above. Reviewed, dictated and finalized at [facility]. Impression: 3.7 cm uterine fibroid, as detailed above.
== END 2024-07-13 09:21 | disposition home or self-care (01) ==
LOC: MICIMG 09:21
PROVIDERS: PCP Family Medicine; Visit Provider Nurse Practitioner Family
DX: D25.0 Submucous leiomyoma of uterus (principal); N92.0 Excessive and frequent menstruation with regular cycle
CPT/HCPCS: 76830; 76856

== ENCOUNTER 2025-02-01 16:13 | Outpatient (CLI) | payer BC, SELFPAY ==
[2025-02-01 16:46] LABS: Hematocrit 30.5 % (37.0-47.0); Hemoglobin 8.7 g/dL (12.0-15.0); Mean Corpuscular HGB Conc 28.5 g/dl (32-36); Mean Corpuscular Hemoglobin 20.0 pg (26-34); Mean Corpuscular Volume 70.3 fl (80-100); Platelet Count Result 305 k/mm3 (150-375); Red Blood Count 4.34 M/mm3 (4.2-5.4); White Blood Count 5.9 K/mm3 (4.5-10.0)
[2025-02-01 17:39] LABS: Iron 20 ug/dL (37-170)
[2025-02-01 18:16] LABS: Ferritin 4.08 ng/mL (6.24-137)
== END 2025-02-01 16:14 | disposition home or self-care (01) ==
LOC: ANHLAB 16:14
PROVIDERS: Visit Provider Obstetrics & Gynecology
DX: N92.0 Excessive and frequent menstruation with regular cycle (principal)
CPT/HCPCS: 36415; 82728; 83540; 85027

== ENCOUNTER 2025-02-14 09:22 | Outpatient (CLI) | payer BC, SELFPAY | END 2025-02-14 09:23 | disposition home or self-care (01) | LOC: ANHSURGERY 09:26 | PROVIDERS: PCP Family Medicine; Visit Provider Obstetrics & Gynecology | DX: Z01.818 Encounter for other preprocedural examination (principal); D25.9 Leiomyoma of uterus, unspecified; D50.9 Iron deficiency anemia, unspecified | CPT/HCPCS: 36415; 86850; 86900; 86901 ==

== ENCOUNTER 2025-02-15 10:14 | Outpatient (CLI) | payer BC, SELFPAY ==
[2025-02-15 11:20] LABS: Hematocrit 32.2 % (37.0-47.0); Hemoglobin 9.2 g/dL (12.0-15.0); Immature Granulocyte Percent A 0.4 % (0-0.5); Lymphocytes Absolute Auto 1.19 K/mm3 (0.9-3.2); Mean Corpuscular HGB Conc 28.6 g/dl (32-36); Mean Corpuscular Hemoglobin 19.9 pg (26-34); Mean Corpuscular Volume 69.5 fl (80-100); Nucleated Red Blood Cells Absolute Auto 0.000 K/mm3 (0.0-0.012); Nucleated Red Blood Cells Perc 0.0 % (0.0-0.2); Platelet Count Result 363 k/mm3 (150-375); Red Blood Count 4.63 M/mm3 (4.2-5.4); White Blood Count 4.6 K/mm3 (4.5-10.0)
[2025-02-15 11:48] LABS: Hypochromasia 1+; Polychromasia Occasional
[2025-02-15 11:49] LABS: Anisocytosis 1+; Ovalocytes 1+; Schistocytes None Seen; Stomatocytes Occasional
== END 2025-02-15 10:15 | disposition home or self-care (01) ==
LOC: ANHLAB 10:15
PROVIDERS: PCP Family Medicine; Visit Provider Obstetrics & Gynecology
DX: D64.9 Anemia, unspecified (principal)
CPT/HCPCS: 36415; 85025

== ENCOUNTER 2025-02-16 01:16 | Day surgery (SDC) | payer BC, SELFPAY ==
[2025-02-08 09:14] VITALS: BMI 31.8
--- NOTE | 2025-02-08 09:28 | PC.NURSE ---
[facility] has started construction of its new state of the art ER which will open Spring 2026. With this, we anticipate parking may be a challenge for some our surgical patients and families. Parking spaces are limited but are available for all Surgical, obstetrics, and ER patients sharing this lot. If you arrive and find you are having a hard time finding a parking space, please note that we understand the challenges, please drive around the hospital and park near Hospital Entrance 1. When you enter this entrance, you can ask a volunteer to direct or take you back to the surgical waiting area to check in. We appreciate everyone?s understanding of these expected challenges while we build for your future. Report to the Outpatient Waiting Room, entrance under the green pavilion located off [address], at time _0600_ on date _[id number]_. Planned Procedure Time: _0730_.? Time changes happen often and if your time is changed the preop area will call you the afternoon before. - You and your visitor will be asked to self-screen and do not enter if you have any COVID symptoms. Please call surgeon if you need to reschedule. - A mask is optional within the hospital at this time. Patients may have clear liquids (water, carbonated beverages, clear teas, apple juice) until 3 hours prior to surgery with a maximum of 20 ounces. - No food from midnight until time of surgery and no smoking, or chewing tobacco (or any form of nicotine). No chewing gum, candy or mints. Take only the following medications with a SIP of water on the morning of surgery: ___None____ DO NOT STOP ANY OF YOUR OTHER PRESCRIPTION MEDICATIONS PRIOR TO SURGERY EXCEPT THE FOLLOWING Hold all vitamins and supplements for 3 days per anesthesiologist. Medications to discontinue per physician Patient says Dr Flowers told her no Ibuprofen for a week prior to surgery. Date to take last dose Please no make-up, nail frisian, hairspray, perfume, deodorant, or body powder the day of surgery.? No jewelry (including any body piercings) or valuables the day of surgery, leave them at home.? Please take a shower or bath the night before, or the morning of, surgery with an antibacterial soap.? Wear comfortable, loose fitting clothing.? - Jewelry must be removed prior to entering the operating room.? Rings and piercings that are not removed may be cut off. - The hospital will not accept responsibility for valuables.? - Please leave all valuables, including medications, at home the day of surgery. If you are going home after surgery, a licensed patrol driver must drive you home.? - NO public transportation without another adult if you receive anesthesia. - We recommend that an adult stay with you for 24 hours following discharge. - We also recommend that you do not drive, make important decision, drink alcoholic beverages, or take any drugs that were not prescribed by your health care provider for at least 24 hours after your discharge time. Follow any additional instructions given to you from your surgeon. Telephone instructions given to _Natalie__and asked if any additional questions and then verbalized understanding. Patient advised to call surgeon office or pre surgery nurse liaison [phone] if any additional questions.
[2025-02-16] VITALS (13 sets, daily range): BP systolic 120–141; BP diastolic 69–98; PULSE 50–75; RESP 11–18; TEMP 36.2–36.9; O2SAT 99–100; BMI 31.1
[2025-02-16] MEDS: LACTATED RINGERS 1,000 ML 30 ML IV CONT ×2 (06:30→10:24)
[2025-02-16] MEDS: KETOROLAC 15 MG/ML VIAL (*BKC) IV PUSH (06:35)
[2025-02-16] MEDS: ACETAMINOPHEN 500 MG TABLET 1000 MG PO ×4 (06:35→23:50)
--- NOTE | 2025-02-16 07:03 | WPDHPUPDATE1 ---
History and Physical Update Update Date/Time: 02/16/25 07:03 History and Physical has been reviewed, including an updated exam of the patient. There are NO changes in the patient's condition. Risks, benefits, and alternatives have been discussed and questions answered. Patient agrees to proceed with procedure.
--- NOTE | 2025-02-16 07:06 | WPDANESEPPF ---
Anes - Initial Pre Proc Eval Procedure: Operation Date: 02/16/25 07:30 Proposed Procedures p Robotic Assisted Laparoscopic Total Vaginal Hysterectomy with Bilateral Salpingectomy - Vitor Flowers MD Date/Time: 02/16/25 07:06 Surgeon: Vitor Flowers MD Pre Op Diagnosis: menorrhagia, fibroids Patient Data Age: 44 Gender: F Height: 1.68 m Weight: 87.6 kg Allergies Allergy/AdvReac Type Severity Reaction Status Date / Time iron AdvReac Mild Diarrhea Verified 02/16/25 06:21 Home Medications ?Medication ?Instructions ?Recorded ?Confirmed ?Type multivitamin 1 tablet PO DAILY 06/07/24 02/16/25 History ibuprofen 200 mg capsule 200 mg PO ONCE PRN pain 02/16/25 02/16/25 History Patient hx anesthesia problems: post op nausea/vomiting Family hx anesthesia problems: none Results Review: All pre-operative results and documents have been reviewed as part of the pre-operative evaluation. 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 on 11/19/22 SAW History of x3 History of wisdom tooth extraction 1999 Family History Family History Mother Family history of thyroid disease Family history of cardiovascular disease Family history of malignant neoplasm of brain Father Family history of heart disease in male family member before age 55, Onset Age: 39 Diabetes mellitus Family history of mental disorder Acute myocardial infarction Sibling Congenital heart defect Social History Social History Years smoked: 15 Smoking status: Former smoker Tobacco type: cigarettes Second hand tobacco smoke exposure: No Smoking end date: 03/31/16 Additional smoking assessment comments: 15 years smoking 5 cigarettes a day Alcohol intake: current Drinks per week: 5 Substance use: never Substance use type: does not use Do You Feel Safe in your Home?: Yes Lack of Transportation: No Lack of Food: Never True Current Housing: I Have Housing Concerned About Future Housing: No Difficulty Paying Gas/Electric Bills: No Difficulty Paying for Meds: No Currently Unemployed: No Education: Bachelor's Degree Difficulty w/ Childcare or Family Care: No Living arrangements: with family Occupation/Education: occupation Additional occupation/education comments: Wound care nurse. Gender identity (if verbalized by the patient): Female Spiritual care concerns: No Anes - Eval Final PreProcedure Day of Procedure 02/16/25 07:06 Patient weight: obese Lungs: normal air movement Airway: Mallampati scale class II Neurological: alert and oriented Last oral intake: >/= 8 hours ASA classification: II Emergent: no Anesthetic plan: proceed Anesthesia type and monitoring: general ETT and standard monitoring Results Review: All pre-operative results and documents have been reviewed as part of the pre-operative evaluation. HTN, BMI 31, stress test approx 10 years ago neg for ischemia per pt. Informed Consent: The patient's anesthetic plan and its attendant risks and benefits were discussed with the patient/family/POA. Questions were solicited and answers provided to the satisfaction of the patient/family/POA.
[2025-02-16] MEDS: SCOPOLAMINE 1 MG PATCH 1 PATCH TRANSDERM (07:20)
[2025-02-16] MEDS: ceFAZolin 2 GM in SODIUM CHLORIDE 0.9% IV 50 ML 100 ML IVPB (07:29)
[2025-02-16] MEDS: metroNIDAZOLE 500 MG/ISO 100ML 500 MG/100 ML BAG 100 MG IVPB (07:39)
[2025-02-16] MEDS: BUPivacaine HCL 0.5% 10 ML AMP 30 ML INFILTRATE (08:27)
--- NOTE | 2025-02-16 09:26 | S_PTH ---
PATIENT: Natalie Cohn LOC: [facility] U#:[id number] AGE/SX: 44/F ROOM: RE02/16/[address]: Vitor Flowers MD : 1980 BED: DIS: 02/17/2025 SPEC #: [id number] RECD: 02/16/25 11:19 STATUS: MITRA REQ #: [id number] TEENA: 02/16/25 09:[address]: Vitor Flowers DEPT: [facility] Surgical RECD BY: Drew Inman ENTERED: 02/16/25 11:19 SP TYPE: Surgical OTHR DR: Reji Navarro MD Tissues: A - Uterus Procedures: Hematoxylin and Eosin Stain Gross and Microscopic Level 5
--- NOTE | 2025-02-16 10:34 | P.OP_ITS ---
Procedure Note - Detailed Date of Procedure 02/16/25 Pre-op Diagnosis menorrhagia, fibroids Post-op Diagnosis Same Procedure Performed Laparoscopic robotic assisted total vaginal hysterectomy with bilateral salpingectomy. Surgeon Vitor Flowers MD Anesthesia General Indications Menorrhagia and fibroids , h/o anemia. Findings Enlarged uterus, intramural and subserosal. Normal appearing ovaries and fallopian tubes. Uterus 168 gms. Description of Procedure After informed consent was obtained she was taken to the operating room and general endotracheal anesthesia was administered. She was placed in low li thotomy position. An exam under anesthesia was performed. Uterus mildly enlarged retroverted, no adnexal masses palpated. She was and prepped and draped in sterile fashion. Arroyo catheter placed in bladder. Attention was turned to the vagina speculum was inserted. Single-tooth tenaculum placed on anterior lip of the cervix the uterus sounded to 9 cm. The cervix was dilated to a 8 Woodard dilator. A size 8 uterine manipulator was inserted and secured. A size 3.0 colp cup was secured in the vagina. Then attention was turned to the abdomen, marcaine injected subcutaneously. An incision was made horizontal 2 cm above the umbilicus. The subcutaneous tissue was dissected with S retractors. Anterior and posterior fascia grasped with Cindy clamp and incised. Peritoneum entered. No adhesions palpated. The fascia sutures were secured with 0 vicryl. The robotic hysson port and camera inserted into abdomen and secured to fascial sutures. A Pneumoperitoneum of 15 mm per mercury was obtained. No abdominal or pelvic adhesions noted. Additional 8mm robotic ports were inserted under laparoscopic visualization. Attention was turned to surgery console. The right round ligament was ligated. The right side of the bladder was dissected from the lower uterine segment and upper cervix. The fallopian tube was ligated from broad ligament. The right ovarian ligament was ligated. The posterior leaf of the broad ligament was further dissected. The ascending uterine vessels on the right were cauterized. The uterine vessels were ligated. Attention was turned to the left round ligament which was ligated and the anterior leaf of the broad ligament was dissected anteriorly. The rest of the vesicouterine peritoneum was dissected off of the uterus. Once the bladder was dissected below the colp cup then the posterior leaf of the broad ligament was further dissected. The ovarian ligament was ligated. The ascending uterine vessels were ligated. The uterine arteries were ligated. The cardinal ligaments were ligated. This was done on both sides. An incision was made anterior colpotomy. The uterus was bivalved with cautery. The colposcopy incision was completed and the cervix was removed from the vagina. The uterus and cervix were removed through the vagina. The vaginal cuff was closed in a running fashion with 0 V lock suture. Hemostasis was noted. The pelvis was irrigated. Hemostasis noted. Hemoderm was applied in the pelvis. The patient was taken out of Trendelenburg position. The pneumoperitoneum was released and the ports were removed. The fascial stitch at the supraumbilical incision was approximated with O vicryl. The skin incisions were closed with 4 O Vicryl and skin glue. The patient was extubated in operating room. The sponge count was correct x2. Patient tolerated procedure well and was taken to recovery in stable condition. Estimated Blood Loss 30 Drains No Packing No Pathology Yes (uterus and cervix and right and left fallopian tubes) Complications No immediate complications Condition Stable Disposition PACU [facility] Billing Surgery - Charge Forward: Surgery Billing
[2025-02-16] MEDS: fentaNYL CITRATE INJ (*CRX) 100 MCG/2 ML VIAL 25 MCG IV PUSH ×2 (11:09→11:11)
[2025-02-16] MEDS: SIMETHICONE 80 MG TAB.CHEW PO ×2 (12:34→18:00)
[2025-02-16] MEDS: KETOROLAC 30 MG/ML VIAL (*BKC) IV PUSH ×3 (12:34→23:50)
[2025-02-16 12:38] LABS: BEDSIDEPREGUCG Negative (Negative)
[2025-02-16] MEDS: DOCUSATE SODIUM 100 MG CAPSULE PO (17:59)
[2025-02-16] MEDS: oxyCODONE HCL (*CRX) 5 MG TAB IR PO (22:18)
[2025-02-17 04:00] VITALS: BP 115/73; PULSE 73; RESP 16; TEMP 36.8; O2SAT 100
[2025-02-17] MEDS: IBUPROFEN 600 MG TABLET PO (05:30)
[2025-02-17] MEDS: ACETAMINOPHEN 500 MG TABLET 1000 MG PO (05:30)
[2025-02-17] MEDS: oxyCODONE HCL (*CRX) 5 MG TAB IR PO (06:41)
--- NOTE | 2025-02-17 07:18 | P.PNOB_ITS ---
GAS APPLIANCE INSTALLER - A/P Assessment and plan (1) Status post hysterectomy: Code(s): Z90.710 - Acquired absence of both cervix and uterus Status: Acute Assessment and Plan: Doing well. Discharge today. Postoperative Procedures: Procedures Operation Date: 02/16/25 07:30 Actual Procedure Side Surgeon p Robotic Assisted Laparoscopic Total Vaginal Hysterectomy with Bilateral Salpingectomy Suzy Flowers MD Time Spent With Patient Time: Total time spent is greater than 50% in coordination of care (as documented) at patient's floor/unit and/or counseling patient: Time with patient: less than 15 minutes GAS APPLIANCE INSTALLER- PN:Subj Post-Op Subjective Date/time seen: 02/17/25 07:18 Interval history: She has set up in a chair. She reports positive flatus. She has had a good pain control with the IV pain medicines. Has urinated without problems. Mild spotting. Subjective: pain is well controlled and patient is tolerating oral intake Review of Systems Review of Systems: All systems reviewed & are unremarkable except as noted in HPI and below Cardiovascular: Cardiovascular: Reports no additional cardiovascular complaints Respiratory: Respiratory: Reports no additional respiratory complaints Gastrointestinal: Gastrointestinal: Reports belching, Denies nausea and Denies vomiting Genitourinary: Genitourinary: Reports no additional female genitourinary complaints Musculoskeletal: Musculoskeletal: Reports no additional musculoskeletal complaints Exam Const: General: no acute distress Orientation/consciousness: oriented to person, oriented to place and oriented to time GI: GI Palp: Yes Soft to palpation and No Tenderness to palpation present (GI) Neuro: General: oriented to person, oriented to place and oriented to time Extrem: General: no calf tenderness Psych: Mental Status: mental status grossly normal GAS APPLIANCE INSTALLER - PN: Obj Data Vital Signs Vital Signs: Vital Signs - 24 hr 02/16/25 10:24 02/16/25 10:35 02/16/25 10:45 Temperature 98.3 F Pulse Rate 60 66 72 Respiratory Rate 11 L 12 12 Blood Pressure 122/69 120/74 129/76 Pulse Oximetry 100 99 100 Oxygen Delivery Simple Face Mask Nasal Cannula Nasal Cannula Oxygen Flow Rate 8 2 2 02/16/25 11:00 02/16/25 11:15 02/16/25 11:30 Temperature Pulse Rate 52 L 50 L 51 L Respiratory Rate 12 12 12 Blood Pressure 136/81 133/77 136/74 Pulse Oximetry 100 100 100 Oxygen Delivery Nasal Cannula Nasal Cannula Nasal Cannula Oxygen Flow Rate 2 2 2 02/16/25 11:45 02/16/25 12:05 02/16/25 12:50 Temperature 97.5 F L Pulse Rate 58 L 75 63 Respiratory Rate 12 15 Blood Pressure 134/85 138/94 H 135/90 Pulse Oximetry 100 100 Oxygen Delivery Nasal Cannula Oxygen Flow Rate 2 02/16/25 16:40 02/16/25 19:10 02/16/25 23:50 Temperature 98.4 F 98.4 F 97.9 F Pulse Rate 74 65 Respiratory Rate 18 16 16 Blood Pressure 134/96 H 129/84 128/79 Pulse Oximetry 100 99 99 Oxygen Delivery Oxygen Flow Rate 02/17/25 04:00 Temperature 98.2 F Pulse Rate 73 Respiratory Rate 16 Blood Pressure 115/73 Pulse Oximetry 100 Oxygen Delivery Oxygen Flow Rate Intake/Output Intake/Output: Intake & Output 02/14/25 02/15/25 02/16/25 02/17/25 23:59 23:59 23:59 23:59 Intake Total 1550 Output Total 4355 300 Balance -2805 -300 Meds/Results Medications: Active Medications Generic Name Dose Route Start Last Admin Trade Name Freq PRN Reason Stop Dose Admin Acetaminophen 1,000 mg 02/16/25 12:00 02/17/25 05:30 Acetaminophen 500 Mg Tablet PO 1,000 mg Q6HR CLAUDIA Administration Docusate Sodium 100 mg 02/16/25 17:00 02/16/25 17:59 Docusate Sodium 100 Mg Capsule PO 100 mg BID CLAUDIA Administration Lactated Ringer's 1,000 mls @ 30 mls/hr 02/16/25 06:50 02/16/25 11:57 Lr - Lactated Ringers Iv IV CONT Infused .Q24H CLAUDIA Infusion Ibuprofen 600 mg 02/17/25 06:00 02/17/25 05:30 Ibuprofen 600 Mg Tablet PO 600 mg Q6HR CLAUDIA Administration Naloxone HCl 0.1 mg 02/16/25 10:31 Naloxone Hcl 0.4 Mg/Ml Vial IV PUSH Q2M PRN Respiratory rate less than 10 Ondansetron HCl 4 mg 02/16/25 06:46 Ondansetron Inj 4 Mg/2 Ml Vial IV PUSH ONCE PRN Nausea Ondansetron HCl 4 mg 02/16/25 10:31 Ondansetron Inj 4 Mg/2 Ml Vial IV PUSH Q6H PRN Nausea And Vomiting Oxybutynin Chloride 5 mg 02/17/25 09:00 Oxybutynin Chloride 5 Mg Tablet PO DAILY CLAUDIA Oxycodone HCl 5 mg 02/16/25 06:46 02/17/25 06:41 Oxycodone Hcl (*Crx) 5 Mg Tab Ir PO 5 mg ONCE PRN Administration Pain Oxycodone HCl 5 mg 02/16/25 10:31 02/16/25 22:18 Oxycodone Hcl (*Crx) 5 Mg Tab Ir PO 5 mg Q4H PRN Administration Pain Rated 4-6 Oxycodone HCl 10 mg 02/16/25 10:31 Oxycodone Hcl (*Crx) 5 Mg Tab Ir PO Q6H PRN Pain Rated 7-10 Simethicone 80 mg 02/16/25 12:00 02/16/25 18:00 Simethicone 80 Mg Tab.Chew PO 80 mg TIDWM CLAUDIA Administration Labs Labs: Laboratory Results - last 24 hr 02/16/25 06:10 POC Urine HCG, Qual Negative
[2025-02-17 08:45] VITALS: BP 138/88; PULSE 75; RESP 16; TEMP 36.7; O2SAT 100
[2025-02-17] MEDS: DOCUSATE SODIUM 100 MG CAPSULE PO (09:06)
[2025-02-17] MEDS: SIMETHICONE 80 MG TAB.CHEW PO (09:06)
== END 2025-02-17 10:34 | disposition home or self-care (01) ==
LOC: ANHSURGERY 07:12 → ANHOB2 12:04
PROVIDERS: PCP Family Medicine; Visit Provider Obstetrics & Gynecology
PROC: (CPT 58552; principal; 2025-02-16 07:30)
DX: D25.1 Intramural leiomyoma of uterus (principal); D25.2 Subserosal leiomyoma of uterus; N88.8 Other specified noninflammatory disorders of cervix uteri; G89.18 Other acute postprocedural pain; I10 Essential (primary) hypertension; E78.5 Hyperlipidemia, unspecified; D50.9 Iron deficiency anemia, unspecified; R53.83 Other fatigue; E66.9 Obesity, unspecified; Z68.31 Body mass index [BMI] 31.0-31.9, adult; Z79.1 Long term (current) use of non-steroidal anti-inflammatories (NSAID); Z98.890 Other specified postprocedural states; Z86.0100 Personal history of colon polyps, unspecified; Z87.891 Personal history of nicotine dependence; Z80.8 Family history of malignant neoplasm of other organs or systems; Z82.49 Family history of ischemic heart disease and other diseases of the circulatory system
CPT/HCPCS: 58552; S2900; 88307; 99199; J0690; A9270; J1100; J1171; J1596; J1836; J1885; J2003; J2250; J2405; J2704; J3010; J7120